=== PATIENT | male | born 1985 | race Caucasian/White ===

== ENCOUNTER → 2024-05-28 08:24 | Outpatient (REF) | payer OTHER, SELFPAY | LOC: HWRAD 08:24 | PROVIDERS: ATTENDING PHYSICIAN Physician Assistant; FAMILY PHYSICIAN Internal Medicine | DX: R10.13 Epigastric pain (principal) | CPT/HCPCS: 76700 ==

== ENCOUNTER → 2024-06-30 08:30 | Outpatient (REF) | payer OTHER, SELFPAY | LOC: HWRAD 08:30 | PROVIDERS: ATTENDING PHYSICIAN Surgery; FAMILY PHYSICIAN Internal Medicine | DX: N20.0 Calculus of kidney (principal) | CPT/HCPCS: 74176 ==

== ENCOUNTER 2025-05-08 12:17 | Emergency (ER) | payer OTHER, SELFPAY ==
[2025-05-08 12:25] VITALS: BP 108/73
[2025-05-08] MEDS: ADACEL 0.5 ML IM (14:33)
--- NOTE | 2025-05-08 19:00 | ED.SKININJ ---
HPI-Injury
General
Chief Complaint: Head Injury
Source: patient and spouse
Exam Limitations: none
Time Seen by Provider: 05/08/25 14:01
Nursing documentation reviewed up to this point in time: agreed with
History of Present Illness-Injury
Initial Injury comments:
39-year-old male states he was in his yard standing on a wrought iron chair fixing a swing set when the chair broke, he fell back, striking his back on the chair, then falling to the ground onto his back and scraping his right arm. He sates he got
the wind knocked out of him. He hit the back of his head with no LOC, denies neck pain. Denies headache. Denies trouble breathing, abdominal pain, nausea. Denies injury to his extremities other than the right arm abrasions. Unsue of last dT. He
states he laid on the ground for a few minutes but then was able to get up independently
Past History
Past History
ED Past Medical History: Other (Celiac)
ED Past Surgical History: None
Social History
Tobacco: Non-smoker
Alcohol: Occasional
Personal:
Living: with family
Employment: Employed
Review of Systems
Review of Systems
Allergies reviewed?: Yes
All Other Systems: ROS reviewed and negative except as documented in HPI and ROS
Phy Exam
Physical Exam
Physical Exam:
GENERAL: No acute distress. A&Ox3.
CONSTITUTIONAL: Afebrile.
EYES: clear, conjunctivae normal
ENMT: moist mucus membranes, Pharynx nl
RESPIRATORY: Regular respirations, nonlabored, lungs clear.
CARDIOVASCULAR: Regular rate and rhythm, no murmurs, no rubs.
GI: Soft, nontender, normal BS
MUSCULOSKELETAL: No spinal bony tenderness. There is the back is mildly tender at site of several abrasions but nothing significant. Rib cage is nontender to compression. No chest wall tenderness. Patient out of bed with full range of motion of
neck and spine with ease. Mild tenderness right upper trapezius area, no swelling here. Very superficial abrasion. Moving all extremities well well perfused.
SKIN: Warm, dry, pink, there are superficial abrasions across his lower back, there are 2 rectangular shaped abrasions on the left mid back consistent with hitting the wrought iron chair.
PSYCH: Normal mood and affect. Well kept, interactive and appropriate
NEUROLOGIC: Awake, alert and oriented. No focal neurological deficits. Ambulating well with steady gait.
Course
Orders/Labs/Results
Orders:
Orders
05/08/25 14:22
Tetanus/Diphth/Acelpertussis [Adacel] 0.5 ml IM .ONCE ONE
Vital Signs
Initial and Last Documented VS:
Initial Vital Signs
Temp Pulse Resp BP Pulse Ox
98.8 F 53 17 108/73 98
05/08/25 12:25 05/08/25 12:25 05/08/25 12:25 05/08/25 12:25 05/08/25 12:25
Last Documented Vital Signs
Temp Pulse Resp BP Pulse Ox
98.8 F 53 17 108/73 98
05/08/25 12:25 05/08/25 12:25 05/08/25 12:25 05/08/25 12:25 05/08/25 12:25
MDM/Problems Addressed
Differential Diagnosis Includes:
Concussion,
MDM/Problems Addressed:
39-year-old male states he was in his yard standing on a wrought iron chair fixing a swing set when the chair broke, he fell back, striking his back on the chair, then falling to the ground onto his back and scraping his right arm. He sates he got
the wind knocked out of him. He hit the back of his head with no LOC, denies neck pain. Denies headache. Denies trouble breathing, abdominal pain, nausea. Denies injury to his extremities other than the right arm abrasions. Unsure of last dT. He
states he laid on the ground for a few minutes but then was able to get up independently
There is no bony tenderness, no indication for imaging
Abdomen benign
Tdap updated
Multiple abrasions of back and right forearm, mild tenderness right upper trapezius area of back, stiff and sore but no significant injury
*Pulse Oximetry
SaO2: 98
Oxygen Mode of Delivery: Room air
Patient hypoxic: no
*Critical Care Note
Total Time (30-74mins, 75-104mins- exclusive of procedures): Not Applicable
ED Attending Note
-
Portions of this chart may have been created with voice recognition software.� Occasional wrong word or��sound alike� substitutions may have occurred due to the inherent limitations of voice recognition software.
Discharge Plan
Departure
Patient Disposition: Home (Routine Discharge)
Date of Disposition: 05/08/25
Time of Disposition: 14:28
Patient with high blood pressure during this ER visit?: No
Condition: Good
Discharge Problem:
Accidental fall from furniture, Abrasion of right forearm, Abrasion of back, Muscle strain of upper back
Instructions: Muscle strain, Minor Head Injury (DC), Taking care of cuts, scrapes, and puncture wounds
Referrals:
Fahad Shay, DO [Family Provider, Internal Medicine] - As needed
Activity Restrictions/Additional Instructions:
As we discussed, Tylenol or ibuprofen as needed for pain.
You may be more stiff and sore over the next 2 to 3 days as this is not unusual after a fall
Interventions
Interventions:
*Risk Screen - Suicide Last Done: 05/08/25 12:27
*General Assessment Last Done: 05/08/25 12:27
*Neglect/Abuse Screening Last Done: 05/08/25 12:27
*ED- Fall Risk Assessment Last Done: 05/08/25 12:33
*ED COVID-19 Vaccine History Last Done: 05/08/25 12:27
*Nursing Disposition Last Done: 05/08/25 14:40
ED- Neurological Assessment Last Done: 05/08/25 12:33
ED-Skin Assessment Last Done: 05/08/25 12:33
Discharge Date and Time
Discharge Date/Time: 05/08/25 14:39
Print Language: [id number]
== END 2025-05-08 14:39 | disposition home or self-care (01) ==
LOC: EMR 12:17
PROVIDERS: EMERGENCY PHYSICIAN Emergency Medicine; FAMILY PHYSICIAN Internal Medicine
DX: S50.811A Abrasion of right forearm, initial encounter (principal); S30.810A Abrasion of lower back and pelvis, initial encounter; S20.412A Abrasion of left back wall of thorax, initial encounter; S29.012A Strain of muscle and tendon of back wall of thorax, initial encounter; K90.0 Celiac disease; K86.81 Exocrine pancreatic insufficiency; Z23 Encounter for immunization; W07.XXXA Fall from chair, initial encounter; Y92.007 Garden or yard of unspecified non-institutional (private) residence as the place of occurrence of the external cause
CPT/HCPCS: 99282; 90471; 90715